=== PATIENT | female | born 1965 | race Caucasian/White ===

== ENCOUNTER 2016-08-30 07:48 | Emergency (ER) | payer BC ==
[2016-08-30 08:01] VITALS: BP 112/81
--- NOTE | 2016-08-30 08:35 | ED Physician Documentation ---
History of Present Illness - Stated complaint Stated Complaint: L FOOT INJURY - Chief complaint Chief Complaint: Ext Problem - History obtained from History obtained from: Patient, Family - History of Present Illness Timing: Yesterday Pain level max: 4 Pain level now: 3 - Additonal information Additional information: This patient is a pleasant 51-year-old female is otherwise healthy. She presents with a chief complaint of right-sided foot pain. Yesterday she had a continued dropped on her right foot by accident. From that point to the present she has had pain with ambulation. She has been taking ibuprofen is been elevating it however this morning the pain was worse since she had a difficult time ambulating. The pain is worse with movement and better with rest. She denies any other injury to the affected right leg. Is no past history of any orthopedic problems. Review of Systems Constitutional: denies: Chills Eyes: denies: Loss of vision Cardiac: denies: Chest pain / pressure, Palpitations Respiratory: denies: Dyspnea, Cough GI: denies: Abdominal Pain : denies: Dysuria, Frequency Musculoskeletal: reports: Joint pain, Extremity swelling. denies: Neck pain, Back pain Neurologic: denies: Generalized weakness PD PAST MEDICAL HISTORY - Past Medical History Past Medical History: Yes Cardiovascular: None Respiratory: None Neuro: None GI: None MEDIA ANALYTICS MANAGER: None : None Other Past Medical History: broke left knee. - Past Surgical History Past Surgical History: Yes /MEDIA ANALYTICS MANAGER: Dilation and currettage - Present Medications Home Medications: Ambulatory Orders Medication Instructions Recorded Confirmed Tramadol HCl 50 mg PO Q8HR PRN #14 tablet 08/30/16 - Allergies Allergies/Adverse Reactions: Allergies Allergy/AdvReac Type Severity Reaction Status Date / Time No Known Drug Allergies Allergy Verified 08/30/16 08:01 - Social History Does the pt smoke?: No Smoking Status: Never smoker Does the pt drink ETOH?: Yes Does the pt have substance abuse?: No - Immunizations Immunizations are current?: Yes PD ED PE NORMAL - General General: Alert and oriented X 3 - HEENT HEENT: Atraumatic - Neck Neck: Supple, no meningeal sign - Cardiac Cardiac: RRR - Respiratory Respiratory: No respiratory distress - Abdomen Abdomen: Normal bowel sounds - Extremities Extremities: Other (Mild soft tissue swelling and tenderness over the midfootApproximately at the base of the first metatarsal right side) Results - Vitals Vitals: Vital Signs - 24 hr 08/30/16 07:55 Temperature 36.7 C Heart Rate 72 Respiratory 16 Rate Blood Pressure 112/81 H O2 Saturation 97 Oxygen O2 Source Room air PD MEDICAL DECISION MAKING - ED course ED course: Patient is aPleasant female without any past medical history who presents with a complaint of left midfoot pain after canoe fell on it yesterday. She has a small area of tenderness and erythema over the midfoot area. This is consistent with contusion. Clinically the ankle hindfoot and forefoot are normal. Radiographically see no evidence of bony fracture dislocation on my read of the three-view foot films. My clinical suspicion for fracture is very low. I have asked her to rest it, elevate it, and will write her a small amount of pain medications if anti-inflammatories are not sufficient. Departure - Departure Disposition: 01 Home, Self Care Clinical Impression: Foot contusion Condition: Good Instructions: ED Contusion Lower Extr Ch Follow-Up: your,physician [Other] Prescriptions: Tramadol HCl 50 mg PO Q8HR PRN #14 tablet PRN Reason: Pain Comments: Rest, ice, elevate, return if it fails to improve or gets worse.
--- NOTE | 2016-08-30 09:00 | XRAY Preliminary Report ---
Exam: XR Foot 3 View LT IMPRESSION: Negative three-view left foot radiography. [facility] SITE ID: [id number]
--- NOTE | 2016-08-30 09:02 | XRAY Report ---
EXAM: LEFT FOOT RADIOGRAPHY EXAM DATE: 08/30/2016 08:32 AM. CLINICAL HISTORY: Dropped Canoe on Foot. Pain COMPARISON: None. TECHNIQUE: 3 views. FINDINGS: Bones: No fractures or bone lesions. Joints: No subluxations. Soft Tissues: No soft tissue swelling. IMPRESSION: Negative three-view left foot radiography. [facility] Referring Provider Line: [phone] SITE ID: [id number]
== END 2016-08-30 09:08 | disposition home or self-care (01) ==
LOC: ED 07:48
DX: S90.32XA Contusion of left foot, initial encounter (principal); W22.8XXA Striking against or struck by other objects, initial encounter
CPT/HCPCS: 99283

== ENCOUNTER 2018-12-01 12:51 | Outpatient (CLI) | payer BC ==
--- NOTE | 2018-12-10 09:21 | Mammography Report ---
Reason: ROUTINE MAMMO Procedure Date: 12/01/2018 Accession Number: [id number] / [id number] Procedure: MGS - Screening Mammo Dig Bilat CPT Code: FULL RESULT: EXAM: Screening Mammo Dig Bilat DATE: 12/01/2018 1:19 PM CLINICAL HISTORY: Screening encounter. TECHNIQUE: (B) - Bilateral CC, laterally exaggerated CC, MLO views were obtained. COMPARISON: 01/22/2017 through 04/04/2015. PARENCHYMAL PATTERN: (D) - The breast(s) demonstrate(s) heterogeneously dense fibroglandular parenchyma. FINDINGS: There are no suspicious masses, calcifications, or areas of distortion. IMPRESSION: Negative examination. BI-RADS category 1. RECOMMENDATION: (ANNUAL) - Recommend routine annual screening mammography. BI-RADS CATEGORY: (1) - Negative. STANDARD QUALIFYING STATEMENTS: 1. This examination was reviewed with the aid of Computer-Aided Detection (CAD). 2. A negative or benign imaging report should not preclude biopsy if clinically suspicious findings are present. 3. Dense breasts may obscure an underlying neoplasm. 4. This examination was reviewed without the aid of 3D breast imaging (tomosynthesis).
== END 2018-12-01 12:52 | disposition home or self-care (01) ==
LOC: DI.S 12:51
PROVIDERS: ATTEND Naturopath
DX: Z12.31 Encounter for screening mammogram for malignant neoplasm of breast (principal)
CPT/HCPCS: 77067

== ENCOUNTER 2020-07-22 18:55 | Outpatient (CLI) | payer BC ==
--- NOTE | 2020-07-22 20:56 | Ultrasound Report ---
PROCEDURE: Pelvic w/Transvaginal INDICATIONS: EXCESSIVE MENSTRUATION W REG CYCLE TECHNIQUE: Real-time scanning was performed of the pelvic organs, with image documentation. Additional endovagi nal scanning was necessary due to incomplete visualization of the adnexal and endometrial structures by transabdominal scanning. COMPARISON: None. FINDINGS: No pathologic free abdominal or pelvic fluid. Tampon artifact can be seen. Uterus: Uterus is normal in size at 11 x 4.9 x 7 cm. And demonstrates a mid anterior uterus submucos al fibroid that measures up to 1.4 cm. The endometrium measures 7 mm in combined thickness. Nabothia n cysts are incidentally noted. Ovaries: The right ovary measures 2.2 x 1.6 x 2 cm and the left ovary measures 4.4 x 2.1 x 3.1 cm an d demonstrates a simple appearing cystic follicle that measures up to 2.3 cm, which is considered to be within physiologic limits. No significant ovarian abnormalities are seen. There are less than 12 follicles seen on each side. No adnexal masses are seen. IMPRESSION: There is a 1.4 cm submucosal fibroid noted. If it would be helpful for clinical management decision making, please consider hysteroscopy for furt her evaluation. Reviewed by: Carroll Martinez MD on 07/22/2020 7:55 PM REHAN Approved by: Carroll Martinez MD on 07/22/2020 7:55 PM REHAN Station ID: [id number]
== END 2020-07-22 18:56 | disposition home or self-care (01) ==
LOC: DI 18:55
PROVIDERS: ATTEND Naturopath
DX: D25.0 Submucous leiomyoma of uterus (principal)

== ENCOUNTER 2020-10-15 08:00 | Outpatient (CLI) | payer BC, OTHER | END 2020-10-15 23:59 | disposition home or self-care (01) | LOC: LAB.S 08:00 | PROVIDERS: ATTEND Physician Assistant | DX: M54.9 Dorsalgia, unspecified (principal); Z53.9 Procedure and treatment not carried out, unspecified reason | CPT/HCPCS: 87086 ==

== ENCOUNTER 2021-06-10 05:04 | Outpatient (CLI) | payer OTHER | END 2021-06-10 05:05 | disposition short-term general hospital (02) | LOC: EMS 05:04 | DX: R07.89 Other chest pain (principal); R11.2 Nausea with vomiting, unspecified; R42 Dizziness and giddiness | CPT/HCPCS: A0425; A0427 ==

== ENCOUNTER 2021-09-20 07:58 | Outpatient (CLI) | payer OTHER ==
--- NOTE | 2021-09-21 14:10 | Mammography Report ---
BILATERAL DIGITAL DIAGNOSTIC MAMMOGRAM 3D/2D: 09/20/2021 CLINICAL: Intermittent pain in bilateral breasts. Comparison is made to exams dated: 12/01/2018 mammogram - [facility], 01/22/2017 mammogram, and 04/04/2015 mammogram - [facility] [place]. There are scattered fibroglandular elements in both breasts. There is a 5 mm round equal density focal asymmetry in the right breast at 9 o'clock middle depth. T his is seen in additional views. This is not significantly changed. This is present amidst dense fi brous tissue. No other significant masses, calcifications, or other findings are seen in either breast. Specifical ly, no finding to explain the patient's right lateral or left axillary pain. IMPRESSION: INCOMPLETE: NEEDS ADDITIONAL IMAGING EVALUATION The 5 mm round equal density focal asymmetry in the right breast most likely is a cyst or a lymph nod e but remains indeterminate. There is no other new abnormality seen in the right breast to correspond with the pain in the lateral aspect. There is no abnormality seen in the left axilla to correspond with the pain in the left axi lla. Ultrasound is recommended for full evaluation of these areas. This was performed immediately followin g this exam. Based on the Tyrer Cuzick model (a risk assessment model) the patients lifetime risk is 10.2% and he r 10 year risk is 3.0%. According to the ACR, ACS, and NCCN guidelines, an annual breast MRI exam toyin ng with mammogram is recommended if the patients lifetime risk is 20% or greater. This exam was interpreted at Station ID: [id number]. NOTE: For mammograms, a report in lay terms will be sent to the patient. Approximately 15% of breast malignancies will not be visualized mammographically. In the management of a palpable breast mass, a negative mammogram must not discourage biopsy of a clinically suspicious lesion. Electronically Signed By: Preeti quesada/:09/20/2021 09:12:16 ACR BI-RADS Category 0: Incomplete 3340F PARENCHYMAL PATTERN: (A) - The breast(s) demonstrate(s) scattered fibroglandular densities. BI-RADS CATEGORY: (0) - 0 Ultrasound [id number] Immediate follow-up LATERALITY: (B)
--- NOTE | 2021-09-21 14:10 | Ultrasound Report ---
ULTRASOUND OF LEFT BREAST AND AXILLA: 09/20/2021 CLINICAL: Focal left breast pain. Comparison is made to exams dated: 09/20/2021 mammogram - [facility], 12/01/2018 candy mogram - [facility], 01/22/2017 mammogram, and 04/04/2015 [place] - [facility] [place] Ultrasound of the left breast axilla was performed. Jara scale images of the real-time examination were reviewed. No significant abnormalities were seen sonographically in the left axilla. Specifically, no enlarged lymph nodes. IMPRESSION: NEGATIVE No sonographic explanation for the patient's left axillary pain, including no adenopathy. There is no sonographic evidence of malignancy. Return to annual mammogram screening schedule is recommended. Findings and recommendations were conveyed to the patient at time of exam. This exam was interpreted at Station ID: [id number]. Electronically Signed By: Preeti quesada/:09/20/2021 09:22:10 Ultrasound BI-RADS: 1 Negative BI-RADS CATEGORY: (1) - 1 RECOMMENDATION: (ANNUAL) - Recommend routine annual screening mammography. [id number] return to screening LATERALITY: (B)
--- NOTE | 2021-09-21 14:10 | Ultrasound Report ---
LIMITED ULTRASOUND OF RIGHT BREAST: 09/20/2021 CLINICAL: Focal right breast pain. Comparison is made to exams dated: 09/20/2021 mammogram - [facility], 12/01/2018 [place] mogram - [facility] [place], 01/22/2017 [place]ogram, [place] [facility] [place]ound of the right breast 8-10 o'clock region was performed. Jara scale images of the real-time examination were reviewed. No significant abnormalities were seen sonographically in the right breast. There is scattered dense fibrous tissue seen in the area of pain. No focal cyst or mass. IMPRESSION: NEGATIVE There is no sonographic correlate to the patient's right breast pain and no evidence of malignancy. Return to annual mammogram screening schedule is recommended. Findings and recommendations were conveyed to the patient at time of exam. This exam was interpreted at Station ID: [id number]. Electronically Signed By: Preeti quesada/:09/20/2021 09:20:21 Ultrasound BI-RADS: 1 Negative BI-RADS CATEGORY: (1) - 1 RECOMMENDATION: (ANNUAL) - Recommend routine annual screening mammography. [id number] return to screening LATERALITY: (B)
== END 2021-09-20 07:59 | disposition home or self-care (01) ==
LOC: DI 07:58
PROVIDERS: ATTEND Naturopath
DX: N64.4 Mastodynia (principal); N60.11 Diffuse cystic mastopathy of right breast; R92.8 Other abnormal and inconclusive findings on diagnostic imaging of breast

== ENCOUNTER 2023-04-23 18:32 | Outpatient (CLI) | payer OTHER ==
--- NOTE | 2023-04-24 12:49 | Ultrasound Report ---
PROCEDURE: Pelvic w/Transvaginal INDICATIONS: EXCESSIVE MENSTRATION TECHNIQUE: Real-time scanning was performed of the pelvic organs, with image documentation. Additional endovagi nal scanning was necessary due to incomplete visualization of the adnexal and endometrial structures by transabdominal scanning. COMPARISON: 07/22/2020. FINDINGS: Uterus: Uterus is anteverted and enlarged in size at 9.4 x 5.1 x 5.5 cm. The myometrium is heteroge neous. 2.3 x 2.2 x 2.4 cm intramural fibroid in anterior myometrium is seen previously measures 1.4 x 1.1 x 1.3 cm in size. 1 x 0.8 x 1 cm subserosal fibroid in left anterior myometrium is also seen ne w since previous study. The endometrium measures 9.1 mm in combined thickness. No endometrial mass o r fluid is seen. Ovaries: The right ovary measures 2.4 x 1.5 x 1.9 cm, with a calculated ovarian volume of 3.5 cc. T he left ovary measures 3 x 1.6 x 2.4 cm, with a calculated ovarian volume of 6.2 cc. The ovaries hav e a normal sonographic appearance. Less than 12 follicles can be seen in each ovary. No adnexal mas ses are seen. Cyst versus dominant follicle in left ovary is seen measures 1.6 x 1.2 x 1.6 cm in size . There is also suggestion of a left paraovarian cyst measures 1.6 cm in size. No cystic lesions mark uring greater than 3 cm. Other: No pathologic free abdominal or pelvic fluid. IMPRESSION: 1. Enlarged uterus with heterogeneous myometrial echotexture and 2 uterine fibroids as above. No drew s endometrial mass or fluid. 2. Left ovarian cyst and paraovarian cyst as described above. No solid-appearing ovarian lesion. Norm al-appearing right ovary. Reviewed by: Jorge Nobles MD on 04/24/2023 12:47 PM PST Approved by: Jorge Nobles MD on 04/24/2023 12:47 PM PST Station ID: [id number]
== END 2023-04-23 18:33 | disposition home or self-care (01) ==
LOC: DI 18:32
PROVIDERS: ATTEND Naturopath
DX: D25.2 Subserosal leiomyoma of uterus (principal); D25.1 Intramural leiomyoma of uterus; N83.202 Unspecified ovarian cyst, left side